=== PATIENT | female | born 1985 | race Asian ===

== ENCOUNTER → 2022-12-16 | Outpatient (CLI) | payer BC ==
[2022-12-16 06:51] LABS: CHLORIDE 107 mEq/L (98-107); INDEX HEMOLYSI 1 (1-3); INDEX ICTERIC 1 (1-4); INDEX LIPEMIC 1 (1-3); POTASSIUM 3.8 mEq/L (3.5-5.1); SODIUM 138 mEq/L (136-145)
[2022-12-16 07:07] LABS: ALANINE AMINOTRANSFERASE 25 IU/L (13-61); ALBUMIN 3.8 g/dL (3.4-5.0); ASPARTATE AMINOTRANSFERASE 16 IU/L (15-37); BILIRUBIN TOTAL 0.5 mg/dL (0.1-1.0); CALCIUM 8.8 mg/dL (8.5-10.1); CARBON DIOXIDE 28 mEq/L (21-32); CHOLESTEROL 158 mg/dL (<200); CREATININE 0.8 mg/dL (0.6-1.3); GLUCOSE 99 mg/dL (70-105); GLUCOSE FASTING 99 mg/dL (70-105); HDL CHOLESTEROL 50 mg/dL (40-59); LDL CHOLESTEROL 105 mg/dL (5-100); PROTEIN TOTAL 7.7 g/dL (6.0-8.3); T4 FREE 0.93 ng/dL (0.76-1.46); TRIGLYCERIDE 95 mg/dL (0-150); UREA NITROGEN BLOOD 8 mg/dL (7-21)
[2022-12-16 07:11] LABS: BASOPHILS % 0.7 % (0.0-2.0); EOSINOPHILS % 3.9 % (0.0-5.0); HEMATOCRIT. 37.8 % (36.0-48.0); LYMPHOCYTES % 33.5 % (20.0-50.0); MEAN CORPUSCULAR HEMOGLOBIN 31.8 pg (28.0-32.0); MEAN CORPUSCULAR HGB CONC 34.5 g/dL (31.0-37.0); MEAN CORPUSCULAR VOLUME 92.3 fL (81.0-99.0); MEAN PLATELET VOLUME 7.7 fl (7.4-10.4); NEUTROPHILS % 52.9 % (40.0-76.0); PLATELET 315 x1000/uL (130-400); RED BLOOD CELL COUNT 4.09 mill/uL (4.2-5.4); RED CELL DISTRIBUTION WIDTH 12.3 % (11.6-14.6); WHITE BLOOD COUNT 6.7 x1000/uL (4.5-11.0)
[2022-12-16 07:15] LABS: CLARITY URINE CLEAR (CLEAR); COLOR URINE YELLOW (YELLOW); GLUCOSE URINE NEGATIVE (NEGATIVE); KETONES URINE NEGATIVE (NEGATIVE); LEUKOCYTE ESTERASE URINE 1+ (NEGATIVE); NITRITE URINE NEGATIVE (NEGATIVE); OCCULT BLOOD URINE 1+ (NEGATIVE); PH URINE 6.5 (4.5-8.0); PROTEIN URINE NEGATIVE (NEGATIVE); SPECIFIC GRAVITY URINE 1.018 (1.005-1.030); UROBILINOGEN URINE 0.2 E.U./dL (0.2-1.0)
[2022-12-16 07:18] LABS: SQUAMOUS EPITHELIAL CELL URINE 1+ /lpf (RARE/1+); YEAST URINE NONE SEEN
[2022-12-16 08:06] LABS: RBC URINE 0-2 /hpf (0-2)
[2022-12-16 08:07] LABS: BACTERIA URINE 1+
== END | disposition home or self-care (01) ==
LOC: LAB 05:49
PROVIDERS: ATTEND Internal Medicine Nephrology
DX: I10 Essential (primary) hypertension (principal); D64.9 Anemia, unspecified; E11.29 Type 2 diabetes mellitus with other diabetic kidney complication; E55.9 Vitamin D deficiency, unspecified; R80.9 Proteinuria, unspecified; E03.9 Hypothyroidism, unspecified
CPT/HCPCS: 36415; 80053; 80061; 81003; 82306; 82947; 83036; 84439; 84443; 85025